=== PATIENT | female | born 1935 | race Two or more races ===

== ENCOUNTER → 2021-06-25 | Emergency (ER) | payer OTHER ==
[~2021-06-25] VITALS: Ht 162.6 cm; Wt 52.2 kg
[~2021-06-25] MED LIST: IOHEXOL 300 MG/ML 100ML BOTTLE IJ ONE; MORPHINE SULFATE 4 MG/ML SYR/VIAL IV ONE; ONDANSETRON HCL 4 MG/2 ML VIAL IV ONE; cefTRIAXone 1GM/50ML D5W 50 ML IV ONE
[2021-06-25 08:29] LABS: Basophils # (auto) 0 10 ^3/uL (0-0.2); Basophils % (auto) 0.1 % (0.0-2.0); Eosinophils # (auto) 0 10 ^3/uL (0-0.8); Eosinophils % (auto) 0.1 % (0.0-7.0); Hematocrit 45.4 % (36.0-46.0); Hemoglobin 15.4 g/dL (12.2-16.2); Lymphocytes # (auto) 0.8 10 ^3/uL (0.4-5.4); Lymphocytes % (auto) 5.9 % (10.0-50.0); Mean Corpuscular Hemoglobin 32.1 pg (28.0-32.0); Mean Corpuscular Hgb Conc. 33.9 g/dL (32.0-36.0); Mean Corpuscular Volume 94.6 fL (80.0-100.0); Monocytes # (auto) 0.8 10 ^3/uL (0-1.3); Monocytes % (auto) 5.9 % (0.0-12.0); Neutrophils # (auto) 12.4 10 ^3/uL (1.6-8.6); Red Blood Cells 4.79 10^6/uL (4.0-5.20); Red Cell Distribution Width 15.2 % (11.8-14.3)
[2021-06-25 08:51] LABS: Albumin 2.9 g/dL (3.4-5.0); Anion Gap 13 (5-15); Blood Alcohol < 3.0 mg/dL (0-5); Blood Urea Nitrogen 50 mg/dL (7-18); Calcium 8.8 mg/dL (8.5-10.1); Carbon Dioxide 23 mmol/L (21-32); Chloride 106 mmol/L (98-107); Glucose 182 mg/dL (74-106); Magnesium 2.8 mg/dL (1.6-2.6); Potassium 4.3 mmol/L (3.5-5.1); Sodium 142 mmol/L (136-145)
[2021-06-25 08:56] LABS: Alanine Aminotransferase 47 U/L (13-56); Alkaline Phosphatase 171 U/L (45-117); Aspartate Aminotransferase 25 U/L (15-37); BUN/Creatinine Ratio 31.4; Bilirubin, Total 1.7 mg/dL (0.2-1.0); GFR African American 39 mL/min; GFR Non-African American 33 mL/min
[2021-06-25 13:51] LABS: Urine Bacteria FEW /hpf (None Seen); Urine Blood Negative /uL (Negative); Urine WBC 3 /hpf (0 - 5)
[2021-06-25 13:52] LABS: Urine Specific Gravity > 1.050 (1.001-1.035)
[2021-06-25 20:25] VITALS: BP 139/47
== END | disposition hospice, inpatient (51) ==
LOC: EDBD 07:41 → ER 07:41
DX: S22.9XXA Fracture of bony thorax, part unspecified, initial encounter for closed fracture (principal); I10 Essential (primary) hypertension; D72.829 Elevated white blood cell count, unspecified; N39.0 Urinary tract infection, site not specified; R53.1 Weakness; Z88.6 Allergy status to analgesic agent; Z20.822 Contact with and (suspected) exposure to COVID-19; W18.39XA Other fall on same level, initial encounter; Y93.89 Activity, other specified; Y92.89 Other specified places as the place of occurrence of the external cause; Y99.8 Other external cause status
CPT/HCPCS: 36415; 71045; 74177; 80053; 80320; 81001; 83735; 84484; 85025; 87426; 93005; 96365; 96375; 99285; J0696; J2270; J2405; Q9967